=== PATIENT | male | born 1970 | race Caucasian/White ===

== ENCOUNTER 2021-05-24 13:50 | Emergency (ER) | payer OTHER ==
--- NOTE | 2021-05-24 14:47 | EDM.PDOC ---
ED HPI GENERAL MEDICAL PROBLEM - General Chief Complaint: General Stated Complaint: SENT BY PRIMARY PROVIDER/DUE TO BLOOD WORK RESULTS Time Seen by Provider: 05/24/21 14:20 - History of Present Illness INITIAL COMMENTS - FREE TEXT/NARRATIVE: 50-year-old male presents the emergency room with increased weakness fatigue and weight loss. Patient was sent here by his primary provider in [place] after finding out his proBNP was over 8000. Patient gives a history of worsening fatigue over the last year progressively getting worse. This is aggravated by the patient having shingles this last winter and then was treated for a sinus infection in March he took amoxicillin and thought maybe the amoxicillin made his condition much worse. Patient has had significant weight loss and just no energy. He is used to being very active hiking, hunting and he just has no energy to do any of this anymore. He does not have significant chest discomfort. Patient has a significant history of aortic valvular disease diagnosed at age 13. - Related Data Allergies Allergy/AdvReac Type Severity Reaction Status Date / Time amoxicillin AdvReac Severe Stomach Verified 05/24/21 14:09 Upset Beef Containing Products AdvReac Severe Stomach Verified 05/24/21 14:09 Upset cat dander AdvReac Severe Shortness Verified 05/24/21 14:09 of Breath chicken derived AdvReac Severe Stomach Verified 05/24/21 14:09 Upset Fish Containing Products AdvReac Severe Anaphylactic Verified 05/24/21 14:09 Shock pork derived (porcine) AdvReac Severe Stomach Verified 05/24/21 14:09 Upset Home Meds: Home Meds . [No Known Home Meds] 05/24/21 [History] Past Medical History Cardiovascular History: Reports: Heart Murmur Social & Family History - Tobacco Use Tobacco Use Status *Q: Never Tobacco User - Caffeine Use Caffeine Use: Reports: None - Recreational Drug Use Recreational Drug Use: No ED ROS GENERAL - Review of Systems Review Of Systems: See Below Constitutional: Reports: Weakness, Fatigue, Weight Loss HEENT: Reports: No Symptoms Respiratory: Reports: No Symptoms Cardiovascular: Reports: Dyspnea on Exertion Endocrine: Reports: Fatigue GI/Abdominal: Reports: No Symptoms : Reports: No Symptoms Musculoskeletal: Reports: No Symptoms Skin: Reports: No Symptoms Neurological: Reports: No Symptoms ED EXAM, GENERAL - Physical Exam Exam: See Below Exam Limited By: No Limitations General Appearance: Alert, No Apparent Distress Head: Atraumatic, Normocephalic Neck: Normal Inspection, Supple, Non-Tender, Full Range of Motion, Other (No JVD) Respiratory/Chest: No Respiratory Distress, Lungs Clear, Normal Breath Sounds Cardiovascular: Regular Rate, Rhythm, Systolic Murmur (Course 4/6 holosystolic murmur heard best in the right upper sternal area this radiates through the chest) GI/Abdominal: Normal Bowel Sounds, Soft, Other (Discomfort in the right upper quadrant). No: Guarding, Rigid, Rebound Back Exam: Normal Inspection. No: CVA Tenderness (L), CVA Tenderness (R) Extremities: Normal Inspection, No Pedal Edema Neurological: Alert, Oriented, Normal Cognition Course - Vital Signs Last Recorded V/S: Last Vital Signs Temp 36.4 C 05/24/21 14:03 Pulse 74 05/24/21 14:03 Resp 16 05/24/21 14:03 BP 105/82 05/24/21 14:03 Pulse Ox 97 05/24/21 14:03 - Orders/Labs/Meds Orders: Active Orders 24 hr Category Date Time Status Chest 1V Frontal [CR] Stat Exams 05/24/21 14:56 Taken Labs: Laboratory Tests 05/24/21 05/24/21 Range/Units 15:06 15:06 WBC 7.07 (4.23-9.07) K/mm3 RBC 4.87 (4.63-6.08) M/mm3 Hgb 14.7 (13.7-17.5) gm/dl Hct 44.5 (40.1-51.0) % MCV 91.4 (79.0-92.2) fl MCH 30.2 (25.7-32.2) pg MCHC 33.0 (32.2-35.5) g/dl RDW Std Deviation 48.0 H (35.1-43.9) fL Plt Count 161 L (163-337) K/mm3 MPV 10.9 (9.4-12.3) fl Neut % (Auto) 74.3 H (34.0-67.9) % Lymph % (Auto) 16.0 L (21.8-53.1) % Robertson % (Auto) 7.4 (5.3-12.2) % Eos % (Auto) 1.8 (0.8-7.0) Baso % (Auto) 0.4 (0.1-1.2) % Neut # (Auto) 5.25 (1.78-5.38) K/mm3 Lymph # (Auto) 1.13 L (1.32-3.57) K/mm3 Robertson # (Auto) 0.52 (0.30-0.82) K/mm3 Eos # (Auto) 0.13 (0.04-0.54) K/mm3 Baso # (Auto) 0.03 (0.01-0.08) K/mm3 TSH 3rd Generation 1.541 (0.358-3.74) uIU/mL - Re-Assessments/Exams Free Text/Narrative Re-Assessment/Exam: 05/24/21 16:05 X-ray shows marked cardiomegaly no significant pulmonary congestion. TSH is normal CBC is nonsuggestive. Labs done earlier today are significant for a BUN of 22 creatinine of 1.4 proBNP of 8623 troponin of 0.030. I have reviewed my findings with Dr. Dyer on-call musical string maker at [facility] in [place] she will have her department arrange echocardiogram and see if they can get this gentleman into the clinic sooner. I have relayed this information to the patient and his and they understand this. At the this time the patient is hemodynamically stable we will discharge home. His primary provider ordered a gallbladder ultrasound this was unrevealing earlier today here. EKG done earlier shows sinus rhythm rate 69 EKG is strongly suggestive of LVH. Departure - Departure Time of Disposition: 16:09 Disposition: Home, Self-Care 01 Clinical Impression: Heart failure due to valvular disease - Discharge Information Referrals: Britta Hodges NP [Primary Care Provider] - Forms: ED Department Discharge Additional Instructions: Return to the emergency room with any questions problems or concerning symptoms. You should be contacted by [facility] cardiology department who will work on getting a echocardiogram, this is an ultrasound your heart, set up. They are also going to attempt to get you into the clinic sooner. Sepsis Event Note (ED) - Evaluation Sepsis Screening Result: No Definite Risk - Focused Exam Vital Signs: Vital Signs Temp Pulse Resp BP Pulse Ox 05/24/21 14:03 36.4 C 74 16 105/82 97 - My Orders Last 24 Hours: My Active Orders 05/24/21 14:56 Chest 1V Frontal [CR] Stat - Assessment/Plan Last 24 Hours: My Active Orders 05/24/21 14:56 Chest 1V Frontal [CR] Stat
--- NOTE | 2021-05-24 17:58 | CR ---
Chest: Portable view of the chest was obtained. Comparison: No previous chest imaging is available. Heart is enlarged. Mild upper lobe pulmonary vascular redistribution is seen. Lungs otherwise are clear. Bony structures show nothing acute. Impression: 1. Cardiomegaly and mild upper lobe pulmonary vascular congestion. 2. No other acute abnormality is appreciated. Diagnostic code #3
== END 2021-05-24 16:25 | disposition home or self-care (01) ==
LOC: JD.ED 13:50
DX: I50.9 Heart failure, unspecified (principal); I38 Endocarditis, valve unspecified; Z91.018 Allergy to other foods; Z91.013 Allergy to seafood; Z91.09 Other allergy status, other than to drugs and biological substances; Z91.048 Other nonmedicinal substance allergy status; Z88.0 Allergy status to penicillin
CPT/HCPCS: 36415; 71045; 71045-26; 84443; 85025; 99283; 99285-25

== ENCOUNTER 2024-08-24 13:37 | Inpatient (IN) | payer OTHER ==
[2024-08-24] MEDS ORDERED: Sodium Chloride 0.9% 10 ML Syringe FLUSH PRN (14:26)
[2024-08-24] MEDS: Sodium Chloride 0.9% 10 ML Syringe FLUSH PRN (14:52)
[2024-08-24] MEDS: Sodium Chloride 0.9% 1,000 ML IV STA (14:52)
[2024-08-24] MEDS: HYDROmorphone 0.5 MG/0.5 ML Syringe IVPUSH ONE ×2 (14:53→16:14)
[2024-08-24] MEDS: Ondansetron 4 MG/2 ML SDV IVPUSH ONE (14:53)
[2024-08-24 15:10] LABS: BASOPHILS PERCENT AUTO 0.2 % (0.0-1.0); HEMATOCRIT 43.1 % (42.0-52.0); HEMOGLOBIN 14.6 gm/dl (14.0-18.0); IMMATURE GRAN ABSOLUTE AUTO 0.03 K/mm3 (0.00-0.05); IMMATURE GRAN PERCENT AUTO 0.3 % (0.0-0.4); LYMPHOCYTES ABSOLUTE AUTO 0.4 K/mm3 (1.0-4.8); LYMPHOCYTES PERCENT AUTO 3.5 % (24.0-44.0); MEAN CORPUSCULAR HEMOGLOBIN 29.2 pg (28.0-32.0); MEAN CORPUSCULAR HGB CONC 33.9 g/dl (32.0-36.0); MEAN CORPUSCULAR VOLUME 86.2 fl (83.0-99.0); MEAN PLATELET VOLUME 10.1 fl (9.4-12.4); MONOCYTES ABSOLUTE AUTO 0.1 K/mm3 (0.0-0.8); MONOCYTES PERCENT AUTO 1.3 % (0.0-8.0); NEUTROPHILS PERCENT AUTO 94.7 % (41.0-71.0); PLATELET COUNT,PLT 170 K/mm3 (150-400); WHITE BLOOD CELL COUNT,WBC 10.59 K/mm3 (3.9-11.3)
[2024-08-24] MEDS: Iopamidol 612 MG/ML 100 ML Bottle IVPUSH ONE (15:15)
[2024-08-24 15:31] LABS: ALBUMIN 3.7 g/dl (3.4-5.0); ANION GAP 14.8 (5-15); BILIRUBIN TOTAL 1.3 mg/dL (0.2-1.0); BUN/CREATININE RATIO 13.8 (14-18); C-REACTIVE PROTEIN 7.38 mg/dL (<0.30); CALCIUM 8.9 mg/dL (8.5-10.1); CREATININE 1.3 mg/dL (0.7-1.3); EST CRCL DRUG DOSING (CG) 66.29 mL/min; POTASSIUM,K 3.8 mEq/L (3.5-5.1); PROTEIN TOTAL,TP 7.6 g/dl (6.4-8.2)
[2024-08-24 15:35] LABS: CORONAVIRUS COVID-19 NAA NEGATIVE (NEGATIVE); INFLUENZA A NAA NEGATIVE (NEGATIVE); RESPIRATORY SYNCYTIAL VIR NAA NEGATIVE (NEGATIVE)
[2024-08-24] MEDS ORDERED: Propofol 200 MG/20 ML SDV ONE (16:22)
[2024-08-24] MEDS ORDERED: fentaNYL 250 MCG/5 ML SDV ONE (16:23)
[2024-08-24] MEDS ORDERED: Rocuronium 50 MG/5 ML Vial ONE ×2 (16:23→17:08)
[2024-08-24] MEDS ORDERED: Ondansetron 4 MG/2 ML SDV ONE (16:23)
[2024-08-24 16:37] LABS: APPEARANCE,URINE CLEAR (Clear); BILIRUBIN,URINE NEGATIVE (Negative); COLOR,URINE DARK YELLOW (Yellow); GLUCOSE,URINE NEGATIVE (Negative); KETONES,URINE 2+ (Negative); LEUKOCYTE ESTERASE,URINE NEGATIVE (Negative); NITRITE,URINE NEGATIVE (Negative); OCCULT BLOOD,URINE TRACE-INTACT (Negative); PH,URINE 5.5 (5.0-8.0); PROTEIN,URINE 1+ (Negative); UROBILINOGEN,URINE 0.2 (0.2-1.0)
[2024-08-24 16:58] LABS: BACTERIA,URINE FEW /hpf (FEW); MUCUS,URINE MODERATE /hpf (FEW); RBC,URINE 0-5 /hpf (0-5); SQUAMOUS EPITHELIAL CELLS,UR 0-5 /hpf (0-5); WBC,URINE 0-5 /hpf (0-5)
[2024-08-24] MEDS ORDERED: Acetaminophen/oxyCODONE 325-5 MG Tab PO PRN (17:05)
[2024-08-24] MEDS ORDERED: Ondansetron 4 MG/2 ML SDV IV PRN (17:05)
[2024-08-24] MEDS ORDERED: HYDROmorphone 0.5 MG/0.5 ML Syringe ONE ×2 (17:09)
[2024-08-24] MEDS ORDERED: Naloxone 0.4 MG/ML SDV IVPUSH PRN (17:10)
[2024-08-24] MEDS ORDERED: Lactated Ringers 1,000 ML ONE (17:19)
[2024-08-24] MEDS ORDERED: Sugammadex Sodium 200 MG/2 ML VIAL IV ONE (17:22)
[2024-08-24] MEDS ORDERED: Lidocaine 1% 30 ML SDV ONE (17:26)
[2024-08-24] MEDS ORDERED: Ketorolac 30 MG/ML SDV ONE (17:35)
[2024-08-24] MEDS ORDERED: Clindamycin Phosphate in D5W 50 ML IV ONE (17:57)
[2024-08-24] MEDS: EPINEPHrine 1 MG/ML SDV ONE (18:04)
[2024-08-24] MEDS: Lidocaine 1% 30 ML SDV ONE (18:04)
[2024-08-24] MEDS: Bupivacaine 0.25% 10 ML SDV ONE (18:04)
[2024-08-24] MEDS ORDERED: HYDROmorphone 0.5 MG/0.5 ML Syringe IVPUSH PRN (19:18)
[2024-08-24] MEDS ORDERED: fentaNYL 100 MCG/2 ML SDV IVPUSH PRN (19:18)
[2024-08-24] MEDS: Dextrose 5%-0.45% NaCl 1,000 ML IV SCH (22:03)
[2024-08-25] MEDS: Morphine 2 MG/ML SYRINGE IVPUSH PRN (00:11)
[2024-08-25] MEDS: Acetaminophen 325 MG Tab PO PRN (04:02)
== END 2024-08-25 11:17 | disposition home or self-care (01) | DRG 399 ==
LOC: JD.ED 13:37 → JD.SDS 17:14 → JD.MS 18:50
PROVIDERS: ADMIT Surgery; ATTEND Surgery
PROC: 0DTJ4ZZ Resection of Appendix, Percutaneous Endoscopic Approach (ICD-10-PCS; principal; 2024-08-24 17:21)
DX: K35.33 Acute appendicitis with perforation, localized peritonitis, and gangrene, with abscess (principal); Z88.0 Allergy status to penicillin; Z95.2 Presence of prosthetic heart valve; Z86.16 Personal history of COVID-19; Z91.013 Allergy to seafood; Z91.018 Allergy to other foods
CPT/HCPCS: 00840; 0241U; 36415; 74177; 74177-26; 80053; 81001; 85025; 86140; 94760; 96361; 96374; 96375; 96376; 99140; 99285; 99285-25; A9270-GY; J0171; J0665; J0736; J1171; J1885; J2270; J2405; J2704; J3010; J3490; J7030; J7120; J7799; Q9967